=== PATIENT | male | born 1995 | race Two or more races ===

== ENCOUNTER 2019-01-11 09:27 | Emergency (ER) | payer MEDICAID, OTHER ==
[~2019-01-11] VITALS: Ht 185.4 cm; Wt 81.6 kg
[2019-01-11 10:14] VITALS: BP 157/84
[2019-01-11] MEDS ORDERED: BACITRACIN TOP OINT 1 UD PKG TOP ONE (10:30)
[2019-01-11] MEDS ORDERED: LIDOCAINE 1% (LOCAL ANESTH.) PF 5ml SDV ID ONE (10:30)
[2019-01-11] MEDS ORDERED: IBUPROFEN 600 MG TAB PO ONE (11:15)
== END 2019-01-11 11:52 | disposition home or self-care (01) ==
LOC: ER 09:27
DX: S61.212A Laceration without foreign body of right middle finger without damage to nail, initial encounter (principal); W45.8XXA Other foreign body or object entering through skin, initial encounter; Y93.89 Activity, other specified; Y99.0 Civilian activity done for income or pay; Y92.89 Other specified places as the place of occurrence of the external cause
CPT/HCPCS: 12001; 73130